=== PATIENT | male | born 1985 | race Two or more races ===

== ENCOUNTER 2017-03-21 09:09 | Emergency (ER) | payer MEDICAID ==
[~2017-03-21] VITALS: Ht 180.3 cm; Wt 81.6 kg
[2017-03-21 09:44] VITALS: BP 155/100
== END 2017-03-21 11:05 | disposition home or self-care (01) ==
LOC: ER 09:09
DX: S80.01XA Contusion of right knee, initial encounter (principal); M25.562 Pain in left knee; W01.0XXA Fall on same level from slipping, tripping and stumbling without subsequent striking against object, initial encounter; Y93.89 Activity, other specified; Y92.89 Other specified places as the place of occurrence of the external cause; Y99.8 Other external cause status
CPT/HCPCS: 73564

== ENCOUNTER 2021-11-12 05:17 | Emergency (ER) | payer MEDICAID ==
[~2021-11-12] VITALS: Ht 180.3 cm; Wt 91.0 kg
[2021-11-12 05:17] VITALS: BP 162/108
== END 2021-11-12 07:09 | disposition left against medical advice (07) ==
LOC: ER 05:17
DX: R07.89 Other chest pain (principal); R20.0 Anesthesia of skin; R19.7 Diarrhea, unspecified; Z53.21 Procedure and treatment not carried out due to patient leaving prior to being seen by health care provider
CPT/HCPCS: 93005

== ENCOUNTER 2022-11-16 11:42 | Emergency (ER) | payer MEDICAID ==
[~2022-11-16] VITALS: Ht 180.3 cm; Wt 97.2 kg
[2022-11-16 12:10] VITALS: BP 128/67; PULSE 62; RESP 16; TEMP 97.6; O2SAT 98
[2022-11-16] MEDS ORDERED: HYDR-4902 PO (15:24)
[2022-11-16] MEDS ORDERED: CYCL-611 PO (15:24)
[2022-11-16] MEDS ORDERED: DexAMETHasone SOD PHOS 10MG/1ML VIAL INJ IM ONE (15:30)
[2022-11-16] MEDS ORDERED: HYDROcodone-ACET 5/325MG TAB PO ONE (15:30)
[2022-11-16] MEDS ORDERED: KETOROLAC TROMETH 60MG/2ML VIAL IM ONE (15:30)
== END 2022-11-16 16:04 | disposition home or self-care (01) ==
LOC: ER 11:42
DX: S33.5XXA Sprain of ligaments of lumbar spine, initial encounter (principal); F41.9 Anxiety disorder, unspecified; X58.XXXA Exposure to other specified factors, initial encounter; Y93.01 Activity, walking, marching and hiking; Y92.89 Other specified places as the place of occurrence of the external cause; Y99.8 Other external cause status
CPT/HCPCS: 72100; 96372; 99284; J1100; J1885